=== PATIENT | female | born 1990 | race Caucasian/White ===

== ENCOUNTER 2017-07-08 13:12 | Inpatient (IN) | payer BC, OTHER ==
[2017-07-08 13:55] VITALS: BMI 23.3
--- NOTE | 2017-07-08 16:06 | HP ---
COWS - Scale Resting Pulse: 1= [place] 81-100 Sweatin= Chills/Flushing Restless Observation: 1= Difficult to Sit Still Pupil Size: 1= Pupils >than Normal Bone or Joint Aches: 2= Severe Diffuse Aches Runny Nose/ Eye Tearin= Runny Nose/Eyes GI Upset > 30mins: 1= Stomach Cramp Tremor Observation: 1= Tremor [place], Not Seen Yawning Observation: 1= 1-2x During Session Anxiety or Irritability: 2=Irritable/Anxious Goose Flesh Skin: 0=Smooth Skin COWS Score: 13 Admission [facility] Chief Complaint: Heroin Withdrawal symptoms. Allergies/Adverse Reactions: Allergies Allergy/AdvReac Type Severity Reaction Status Date / Time amoxicillin [From Augmentin] Allergy Hives Verified 07/08/17 15:23 clavulanic acid Allergy Hives Verified 07/08/17 15:23 [From Augmentin] History of Present Illness: Pt presents with heroin withdrawal symptoms. Started using heroin one year ago. Injects up to 2-3 bags daily. Denies ETOH use. Never attempted detox before. Pt denies having seizures or overdosing on heroin. Does state she has blacked out before. Does not remember last time she blacked out. Last use of heroin today, approximately 3-4 hours ago. Has PMH of depression and anxiety. Denies SI/HI. Attempted suicide 10 years ago by taking pills. Exam Limitations: No Limitations - Ebola screening Have you traveled outside of the country in the last 21 days: No Have you had contact with anyone from an Ebola affected area: No Have you been sick,other than usual withdrawal symptoms: No Do you have a fever: No - Review of Systems Constitutional: Night Sweats, Changes in sleep EENT: reports: Tearing, Nose Congestion Respiratory: reports: No Symptoms reported Cardiac: reports: No Symptoms Reported GI: reports: Diarrhea, Nausea, Poor Fluid Intake, Abdominal cramping : reports: No Symptoms Reported Musculoskeletal: reports: Back Pain, Joint Pain, Muscle Pain Neuro: reports: Headache, Tremors Endocrine: reports: No Symptoms Reported Hematology: reports: Easy Bleeding Psychiatric: reports: Orientated x3, Anxious, Depressed Patient History - Patient Medical History Hx Anemia: No Hx Asthma: No Hx Chronic Obstructive Pulmonary Disease (COPD): No Hx Cancer: No Hx Cardiac Disorders: No Hx Congestive Heart Failure: No Hx Hypertension: No Hx Hypercholesterolemia: No Hx Pacemaker: No HX Cerebrovascular Accident: No Hx Seizures: No Hx Dementia: No Hx Diabetes: No Hx Gastrointestinal Disorders: Yes (GERD) Hx Liver Disease: No Hx Genitourinary Disorders: No Hx Sexually Transmitted Disorders: No Hx Renal Disease (ESRD): No Hx Thyroid Disease: No Hx Human Immunodeficiency Virus (HIV): No Hx Hepatitis C: No Hx Depression: Yes Hx Suicide Attempt: Yes (10 YEARS AGO, TRIED TO OVERDOSE ON MULTIPLE PILLS) Hx Bipolar Disorder: No Hx Schizophrenia: No - Patient Surgical History Past Surgical History: No Hx Neurologic Surgery: No Hx Cataract Extraction: No Hx Cardiac Surgery: No Hx Lung Surgery: No Hx Breast Surgery: No Hx Breast Biopsy: No Hx Abdominal Surgery: No Hx Appendectomy: No Hx Cholecystectomy: No Hx Genitourinary Surgery: No Hx Section: No Hx Orthopedic Surgery: No Hx Hysterectomy: No Anesthesia Reaction: No - PPD History Previous Implant?: Yes Documented Results: Negative w/o proof Implanted On Prior R Admission?: No PPD to be Administered?: Yes - Reproductive History Patient : No - Smoking Cessation Smoking history: Current every day smoker Have you smoked in the past 12 months: Yes Aproximately how many cigarettes per day: 10 Hx Chewing Tobacco Use: No Initiated information on smoking cessation: Yes 'Breaking Loose' booklet given: 07/08/17 - Substance & Tx. History Hx Alcohol Use: No Hx Substance Use: Yes Substance Use Type: Heroin Hx Substance Use Treatment: No - Substances Abused Heroin Route: Injection Frequency: Daily Amount used: 2-3 BAGS DAILY ($20-30) Age of first use: 26 Date of Last Use: 07/08/17 Methamphetamine Route: Injection Frequency: Daily Amount used: 1/4 GRAMS Age of first use: 26 Date of Last Use: 07/05/17 Family Disease History - Family Disease History Family History: Unremarkable Admission Physical Exam BHS - Vital Signs Vital Signs: Vital Signs - 24 hr 07/08/17 13:53 Temperature 97.2 F L Pulse Rate 87 Respiratory 18 Rate Blood Pressure 134/97 - Physical General Appearance: Yes: Appropriately Dressed, Thin, Tremorous, Anxious HEENTM: Yes: EOMI, Hearing grossly Normal, Normocephalic, Normal Voice, ROJAS, Pharynx Normal Respiratory: Yes: Chest Non-Tender, Lungs Clear, Normal Breath Sounds, No Respiratory Distress, No Accessory Muscle Use Neck: Yes: No masses,lesions,Nodules, Supple, Trachea in good position Breast: Yes: Breast Exam Deferred Cardiology: Yes: Regular Rhythm, Regular Rate, S1, S2 Abdominal: Yes: Normal Bowel Sounds, Non Tender, Flat, Soft Genitourinary: Yes: Within Normal Limits Back: Yes: Muscle Spasm Musculoskeletal: Yes: Gait Steady, Back pain, Muscle Pain Extremities: Yes: Tremors Neurological: Yes: group work program director II-XII NML intact, Alert, Depressed Affect Integumentary: Yes: Track [place] Lymphatic: Yes: Within Normal Limits - Diagnostic (1) Opioid dependence with withdrawal Current Visit: Yes Status: Acute (2) Depressed affect Current Visit: Yes Status: Acute (3) Anxiety Current Visit: Yes Status: Acute Cleared for Admission [facility] - Detox or Rehab [facility] Level of Care: Medically Managed Detox Regimen/Protocol: Methadone [facility] Breath Alcohol Content Breath Alcohol Content: 0 Urine Pregancy Test - Result Urine Test Results: Negative- NO Line Present Urine Drug Screen - Results Drug Screen Negative: No Urine Drug Screen Results: OPI-Opiates, OXY-Oxycodone Inpatient Rehab Admission - Initial Determination Are CD services needed?: Yes Free of communicable disease: Yes Not in need of hospitalization: Yes - Rehab Admission Criteria Previous failed treatment: No Poor recovery environment: Yes Comorbidities: Yes Lacks judgement: Yes
[2017-07-08] MEDS ORDERED: MAGNESIUM HYDROX 2400MG/30ML ORAL SUSPENSION 30 ML CUP PO PRN (16:16)
[2017-07-08] MEDS ORDERED: P-EPHED 60MG/TRIPROLIDI 2.5MG TABLET PO PRN (16:16)
[2017-07-08] MEDS ORDERED: MAG HYDROX/AL HYDROX/SIMETH 30 ML UNIT-DOSE CUP PO PRN (16:16)
[2017-07-08] MEDS ORDERED: ACETAMINOPHEN 325 MG TABLET (FP) PO PRN (16:16)
[2017-07-08] MEDS ORDERED: MENTHOL/PHENOL 1 EACH UD MM PRN (16:16)
[2017-07-08] MEDS ORDERED: LOPERAMIDE HCL 2 MG CAPSULE PO PRN (16:16)
[2017-07-08] MEDS ORDERED: IBUPROFEN 400 MG TABLET (FP) PO PRN (16:16)
[2017-07-08] MEDS ORDERED: MAGNESIUM CITRATE 300 ML BOTTLE PO PRN (16:16)
[2017-07-08] MEDS ORDERED: guaiFENesin/D-METHORPHAN HB 10 ML UNIT-DOSE CUPS PO PRN (16:16)
[2017-07-08] MEDS ORDERED: diazePAM 5 MG TABLET PO PRN (16:23)
[2017-07-08] MEDS ORDERED: METHADONE HCL 10 MG TABLET (FOR DETOX USE ONLY) PO ONE ×2 (17:30→23:00)
[2017-07-08] MEDS ORDERED: NICOTINE POLACRILEX 2 MG GUM BUC PRN (21:25)
[2017-07-08] MEDS ORDERED: MELATONIN 5 MG TABLETS PO PRN (22:00)
[2017-07-08] MEDS ORDERED: THIAMINE HCL 100 MG TABLET (FP) PO SCH (22:00)
[2017-07-08 23:19] LABS: URINE APPEARANCE CLOUDY; URINE BILIRUBIN NEGATIVE (<2.0 mg/dL); URINE BLOOD NEGATIVE (NEGATIVE); URINE COLOR YELLOW; URINE GLUCOSE (UA) NEGATIVE (NEGATIVE); URINE KETONE NEGATIVE (NEGATIVE); URINE LEUK ESTERASE 1+ (NEGATIVE); URINE NITRITE POSITIVE (NEGATIVE); URINE PROTEIN NEGATIVE (NEGATIVE)
[2017-07-08 23:23] LABS: EPI CELLS RARE /HPF (FEW); URINE BACTERIA RARE /hpf (NONE SEEN); URINE MUCUS RARE
[2017-07-09 09:59] LABS: HEMATOCRIT 38.2 % (32.4-45.2); HEMOGLOBIN 12.9 GM/dL (10.7-15.3); MCH 29.7 pg (25.7-33.7); MCHC 33.8 g/dl (32.0-36.0); MEAN CELL VOLUME 87.8 fl (80-96); MEAN PLT VOLUME 9.7 fl (7.5-11.1); PLATELET COUNT 132 K/MM3 (134-434); RBC 4.35 M/mm3 (3.60-5.2); RDW 13.4 % (11.6-15.6); WHITE BLOOD COUNT 8.4 K/mm3 (4.0-10.0)
[2017-07-09] MEDS ORDERED: METHADONE HCL 10 MG TABLET (FOR DETOX USE ONLY) PO ONE (10:00)
[2017-07-09] MEDS ORDERED: PRENATAL VITAMINS W/ FOLIC ACID TABLET (FP) PO SCH (10:00)
[2017-07-09 10:13] LABS: ANION GAP 2 (8-16); BLOOD UREA NITROGEN 8 mg/dL (7-18); CALCIUM 8.3 mg/dL (8.5-10.1); CHLORIDE 107 mmol/L (98-107); CO2 32 mmol/L (21-32); GLUCOSE,RANDOM 78 mg/dL (74-106); POTASSIUM 4.7 mmol/L (3.5-5.1); SODIUM 141 mmol/L (136-145)
[2017-07-09 10:21] LABS: ALK PHOS 62 U/L (45-117); BILIRUBIN,TOTAL 0.3 mg/dL (0.2-1.0); CREATININE 0.5 mg/dL (0.55-1.02); SGOT/AST 15 U/L (15-37); SGPT/ALT 12 U/L (12-78); TOT PROT 5.8 g/dl (6.4-8.2)
--- NOTE | 2017-07-09 13:12 | CONSULT ---
[facility] Psychiatric Consult - Data Date of interview: 07/09/17 Admission source: [facility] Identifying data: Fire[facility] admission to [facility] for this 27 y/o female seeking detox treatment on for heroin and methamphetamine dependence.Patient is single without children,domiciled and reportedly employed. Substance Abuse History: Discussed with the patient.Ms Mcneill confirmed a one year history of crystal methamphetamine + heroin abuse (intravenous).Details in current [facility] report as follows : Smoking history: Current every day smoker. Have you smoked in the past 12 months: Yes. Aproximately how many cigarettes per day: 10. Hx Chewing Tobacco Use: No. Initiated information on smoking cessation: Yes. 'Breaking Loose' booklet given: 07/08/17. - Substance & Tx. History. Hx Alcohol Use: No. Hx Substance Use: Yes. Substance Use Type: Heroin. Hx Substance Use Treatment: No. - Substances Abused. Heroin. Route: Injection. Frequency: Daily. Amount used: 2-3 BAGS DAILY ($20-30). Age of first use: 26. Date of Last Use: 07/08/17. Methamphetamine. Route: Injection. Frequency: Daily. Amount used: 1/4 GRAMS. Age of first use: 26. Date of Last Use: 07/05/17 Medical History: GERD and a history of spondyloarthropathy. Psychiatric History: Patient admits to " a couple " of [facility] that occurred years ago [facility]She is a hostile and guarded historian." I have no recollection of diagnosis, medications, or dates of my hospitalizations.It happened so long ago.I was in my teens." Ms Mcneill states that she has stopped seeing psychiatrists years ago.No medications taken.In this interview, she denies history of suicide attempts but,according to [facility] report,the patient has revealed, during the intake process, a past suicide attempt (via overdose with pills) 10 years ago. Physical/Sexual Abuse/Trauma History: Not discussed.Patient declined. Additional Comment: Urine Drug Screen Results: OPI-Opiates, OXY-Oxycodone.Noted. Mental Status Exam - Mental Status Exam Alert and Oriented to: Time, Place, Person Cognitive Function: Grossly Intact Patient Appearance: Unkempt, Disheveled (thin) Mood: Angry, Nervous, Withdrawn, Irritable Affect: Mood Congruent, Constricted Patient Behavior: Fatigued, Uncooperative, Guarded Speech Pattern: Clear Voice Loudness: Normal Thought Process: Goal Oriented Thought Disorder: Not Present Hallucinations: Denies Suicidal Ideation: Denies Homicidal Ideation: Denies Insight/Judgement: Poor Sleep: Well Appetite: Fair Muscle strength/Tone: Normal Gait/Station: Normal Psychiatric Findings - Problem List ([place] 1, 2,3) (1) Opioid dependence with withdrawal Current Visit: Yes Status: Acute (2) Substance induced mood disorder Current Visit: Yes Status: Acute - Initial Treatment Plan Initial Treatment Plan: Psychoeducation.Detoxification in effect.Observation.
[2017-07-09 17:55] VITALS: BP 91/58; PULSE 81; TEMP 98.2
--- NOTE | 2017-07-09 19:29 | PN ---
BHS COWS - Scale Resting Pulse: 1= [place] 81-100 Sweatin=Flushed/Facial Moisture Restless Observation: 1= Difficult to Sit Still Pupil Size: 0= Normal to Room Light Bone or Joint Aches: 1= Mild Discomfort Runny Nose/ Eye Tearin= Nasal Congestion GI Upset > 30mins: 1= Stomach Cramp Tremor Observation of Outstretched Hands: 1= Tremor [place], Not Seen Yawning Observation: 1= 1-2x During Session Anxiety or Irritability: 2=Irritable/Anxious Goose Flesh Skin: 0=Smooth Skin COWS Score: 11 BHS Progress Note (SOAP) Subjective: shakes Sweats Objective: 07/09/17 19:27 A & O x 3 Ambulatory Laboratory Last Values WBC 8.4 K/mm3 (4.0-10.0) 07/09/17 08:00 RBC 4.35 M/mm3 (3.60-5.2) 07/09/17 08:00 Hgb 12.9 GM/dL (10.7-15.3) 07/09/17 08:00 Hct 38.2 % (32.4-45.2) 07/09/17 08:00 MCV 87.8 fl (80-96) 07/09/17 08:00 MCH 29.7 pg (25.7-33.7) 07/09/17 08:00 MCHC 33.8 g/dl (32.0-36.0) 07/09/17 08:00 RDW 13.4 % (11.6-15.6) 07/09/17 08:00 Plt Count 132 K/MM3 (134-434) L 07/09/17 08:00 MPV 9.7 fl (7.5-11.1) 07/09/17 08:00 Sodium 141 mmol/L (136-145) 07/09/17 08:00 Potassium 4.7 mmol/L (3.5-5.1) 07/09/17 08:00 Chloride 107 mmol/L (98-107) 07/09/17 08:00 Carbon Dioxide 32 mmol/L (21-32) 07/09/17 08:00 Anion Gap 2 (8-16) L 07/09/17 08:00 BUN 8 mg/dL (7-18) 07/09/17 08:00 Creatinine 0.5 mg/dL (0.55-1.02) L 07/09/17 08:00 Creat Clearance w eGFR > 60 (>60) 07/09/17 08:00 Random Glucose 78 mg/dL (74-106) 07/09/17 08:00 Calcium 8.3 mg/dL (8.5-10.1) L 07/09/17 08:00 Total Bilirubin 0.3 mg/dL (0.2-1.0) 07/09/17 08:00 AST 15 U/L (15-37) 07/09/17 08:00 ALT 12 U/L (12-78) 07/09/17 08:00 Alkaline Phosphatase 62 U/L (45-117) 07/09/17 08:00 Total Protein 5.8 g/dl (6.4-8.2) L 07/09/17 08:00 Albumin 3.0 g/dl (3.4-5.0) L 07/09/17 08:00 Urine Color Yellow 07/08/17 20:35 Urine Appearance Cloudy 07/08/17 20:35 Urine pH 7.0 (5.0-8.0) 07/08/17 20:35 Ur Specific [place] 1.015 (1.001-1.035) 07/08/17 20:35 Urine Protein Negative (NEGATIVE) 07/08/17 20:35 Urine Glucose (UA) Negative (NEGATIVE) 07/08/17 20:35 Urine Ketones Negative (NEGATIVE) 07/08/17 20:35 Urine Blood Negative (NEGATIVE) 07/08/17 20:35 Urine Nitrite Positive (NEGATIVE) 07/08/17 20:35 Urine Bilirubin Negative (<2.0 mg/dL) 07/08/17 20:35 Urine Urobilinogen 2.0 mg/dL (0.2-1.0) H 07/08/17 20:35 Ur Leukocyte Esterase 1+ (NEGATIVE) H 07/08/17 20:35 Urine WBC (Auto) 9 /hpf (3-5) 07/08/17 20:35 Urine RBC (Auto) 1 /hpf (0-3) 07/08/17 20:35 Ur Epithelial Cells Rare /HPF (FEW) 07/08/17 20:35 Urine Bacteria Rare /hpf (NONE SEEN) 07/08/17 20:35 Urine Mucus Rare 07/08/17 20:35 RPR Titer Nonreactive (NONREACTIVE) 07/09/17 08:00 HIV 1&2 Antibody Screen Negative 07/09/17 08:00 HIV P24 Antigen Negative 07/09/17 08:00 labs noted Assessment: 07/09/17 19:27 withdrawal sx Plan: continue detox
--- NOTE | 2017-07-09 19:32 | PN ---
[facility] Progress Note Note: Was informed by BRIAN Deng that pt wanted to sign out against medical advice because her partner signed out from another floor. Pt did not wait for provider eval prior to leaving. Pt was said to be A & O x 3 and had steady gait.
--- NOTE | 2017-07-09 19:33 | DS ---
[facility] Detox Discharge Summary Admission Date: 07/08/17 Discharge Date: 07/09/17 - History Additional Comments: pt left unit prior to provider Eval, Left AMA - Physical Exam Results Vital Signs: Vital Signs Temperature 98.2 F 07/09/17 17:55 Pulse Rate 81 07/09/17 17:55 Respiratory Rate 18 07/09/17 17:55 Blood Pressure 91/58 07/09/17 17:55 O2 Sat by Pulse Oximetry (%) Pertinent Admission Physical Exam Findings: withdrawal sx - Medication Discharge Medications: Ambulatory Orders NK [No Known Home Medication] 07/08/17 - Diagnosis (1) Opioid dependence with withdrawal Status: Acute (2) Anxiety Status: Acute (3) Depressed affect Status: Acute (4) Substance induced mood disorder Status: Acute - AMA Did Patient Leave Against Medical Advice: Yes
--- NOTE | 2017-07-09 22:22 | EKG ---
Test Reason : Blood Pressure : / mmHG Vent. Rate : 088 BPM Atrial Rate : 088 BPM P-R Int : 176 ms QRS Dur : 086 ms QT Int : 348 ms P-R-T Axes : 043 026 033 degrees QTc Int : 421 ms NORMAL SINUS RHYTHM NORMAL ECG NO PREVIOUS ECGS AVAILABLE Confirmed by TRISTAN ARAUJO MD ([id number]) on 07/09/2017 10:21:30 PM Referred By: Confirmed By:TRISTAN ARAUJO MD
[2017-07-10] MEDS ORDERED: METHADONE HCL 5 MG TABLET (FOR DETOX USE ONLY) PO ONE (10:00)
[2017-07-11] MEDS ORDERED: METHADONE HCL 5 MG TABLET (FOR DETOX USE ONLY) PO ONE (10:00)
[2017-07-12] MEDS ORDERED: METHADONE HCL 10 MG TABLET (FOR DETOX USE ONLY) PO ONE (10:00)
[2017-07-13] MEDS ORDERED: METHADONE HCL 5 MG TABLET (FOR DETOX USE ONLY) PO ONE (06:00)
== END 2017-07-09 18:53 | disposition left against medical advice (07) | DRG 894 ==
LOC: YASAS 13:12 → Y6N 16:34
PROVIDERS: ADMIT Internal Medicine; ATTEND Internal Medicine
PROC: HZ2ZZZZ Detoxification Services for Substance Abuse Treatment (ICD-10-PCS; principal; 2017-07-08)
DX: F11.23 Opioid dependence with withdrawal (principal); F17.210 Nicotine dependence, cigarettes, uncomplicated; F19.24 Other psychoactive substance dependence with psychoactive substance-induced mood disorder; F41.9 Anxiety disorder, unspecified; R45.89 Other symptoms and signs involving emotional state; K21.9 Gastro-esophageal reflux disease without esophagitis; Z91.5 Personal history of self-harm
CPT/HCPCS: 36415; 80053; 81003; 81015; 85027; 86593; 87389; 93005; 93010

== ENCOUNTER 2017-08-11 20:39 | Inpatient (IN) | payer BC, OTHER ==
[2017-08-11 23:02] VITALS: BMI 22.8
--- NOTE | 2017-08-12 00:44 | HP ---
COWS - Scale Resting Pulse: 1= [place] 81-100 Sweatin=Flushed/Facial Moisture Restless Observation: 0= Sits Still Pupil Size: 0= Normal to Room Light Bone or Joint Aches: 4=Acute Joint/Muscle Pain Runny Nose/ Eye Tearin= None GI Upset > 30mins: 1= Stomach Cramp Tremor Observation: 2= Slight Tremor Visible Yawning Observation: 1= 1-2x During Session Anxiety or Irritability: 4=Extreme Anxiety Goose Flesh Skin: 0=Smooth Skin COWS Score: 15 Admission ROS [facility] - [facility] Chief Complaint: Heroin withdrawal symptoms Allergies/Adverse Reactions: Allergies Allergy/AdvReac Type Severity Reaction Status Date / Time amoxicillin [From Augmentin] Allergy Hives Verified 07/08/17 15:23 clavulanic acid Allergy Hives Verified 07/08/17 15:23 [From Augmentin] History of Present Illness: 27 years old female with a year history of heroin dependence is seeking admission to detox. Patient has been in previous detox and insignificant period of sobriety. She has history of GERD, depression and anxiety. Reports suicide attempt in 2009 and denies suicidal ideation at this time. Exam Limitations: No Limitations - Ebola screening Have you traveled outside of the country in the last 21 days: No (N) Have you had contact with anyone from an Ebola affected area: No Have you been sick,other than usual withdrawal symptoms: No Do you have a fever: No - Review of Systems Constitutional: Chills, Loss of Appetite, Malaise, Night Sweats, Changes in sleep EENT: reports: No Symptoms Reported Respiratory: reports: No Symptoms reported Cardiac: reports: No Symptoms Reported GI: reports: Nausea, Poor Appetite, Poor Fluid Intake, Abdominal cramping : reports: No Symptoms Reported Musculoskeletal: reports: No Symptoms Reported, Back Pain, Muscle Pain Integumentary: reports: Dryness, Flushing Neuro: reports: Headache, Tingling, Tremors Endocrine: reports: No Symptoms Reported Hematology: reports: No Symptoms Reported Psychiatric: reports: Orientated x3, Anxious, Depressed Other Systems: Reviewed and Negative Patient History - Patient Medical History Hx Anemia: No Hx Asthma: No Hx Chronic Obstructive Pulmonary Disease (COPD): No Hx Cancer: No Hx Cardiac Disorders: No Hx Congestive Heart Failure: No Hx Hypertension: No Hx Hypercholesterolemia: No Hx Pacemaker: No HX Cerebrovascular Accident: No Hx Seizures: No Hx Dementia: No Hx Diabetes: No Hx Gastrointestinal Disorders: Yes (GERD- not on medication) Hx Liver Disease: No Hx Genitourinary Disorders: No Hx Sexually Transmitted Disorders: No Hx Renal Disease (ESRD): No Hx Thyroid Disease: No Hx Human Immunodeficiency Virus (HIV): No Hx Hepatitis C: No Hx Depression: Yes (Not on medication) Hx Suicide Attempt: Yes (2009, Denies suicidal ideation at this time) Hx Bipolar Disorder: No Hx Schizophrenia: No - Patient Surgical History Past Surgical History: No Hx Neurologic Surgery: No Hx Cataract Extraction: No Hx Cardiac Surgery: No Hx Lung Surgery: No Hx Breast Surgery: No Hx Breast Biopsy: No Hx Abdominal Surgery: No Hx Appendectomy: No Hx Cholecystectomy: No Hx Genitourinary Surgery: No Hx Section: No Hx Orthopedic Surgery: No Hx Hysterectomy: No Anesthesia Reaction: No - PPD History Previous Implant?: Yes (PPD BUT NOT READ PER PATIENT) Implanted On Prior [facility] Admission?: Yes Date: 07/10/17 PPD to be Administered?: Yes - Reproductive History Patient is a Female of Child Bearing Age (11 -55 yrs old): Yes Last Menstrual Period: 07/29/17 Patient : No - Smoking Cessation Smoking history: Current every day smoker Have you smoked in the past 12 months: Yes Aproximately how many cigarettes per day: 10 Hx Chewing Tobacco Use: No Initiated information on smoking cessation: Yes 'Breaking Loose' booklet given: 08/12/17 - Substance & Tx. History Hx Alcohol Use: No Hx Substance Use: Yes Substance Use Type: Heroin, Marijuana Hx Substance Use Treatment: Yes ([facility]) - Substances Abused Heroin Route: Injection Frequency: Daily Amount used: 1 bundle or 10 bags Age of first use: 26 Date of Last Use: 08/12/17 Marijuana/Hashish Route: Smoking Frequency: Daily Amount used: 5 hits Age of first use: 15 Date of Last Use: 08/11/17 Family Disease History - Family Disease History Family History: Denies Admission Physical Exam S - Vital Signs Vital Signs: Vital Signs - 24 hr 08/11/17 22:59 Temperature 97.7 F Pulse Rate 90 Respiratory 20 Rate Blood Pressure 134/89 - Physical General Appearance: Yes: Moderate Distress HEENTM: Yes: EOMI, Normal ENT Inspection, Normocephalic, Normal Voice, ROJAS Respiratory: Yes: Lungs Clear, Normal Breath Sounds, No Respiratory Distress Neck: Yes: Supple Breast: Yes: Breast Exam Deferred Cardiology: Yes: Regular Rhythm, Regular Rate, Tachycardia Abdominal: Yes: Normal Bowel Sounds, Soft Genitourinary: Yes: Within Normal Limits Back: Yes: Normal Inspection Musculoskeletal: Yes: Back pain, Muscle Pain, Muscle weakness Extremities: Yes: Tremors Neurological: Yes: Alert, Normal Mood/Affect Integumentary: Yes: Warm Lymphatic: Yes: Within Normal Limits - Diagnostic (1) Cannabis dependence, uncomplicated Current Visit: Yes Status: Chronic (2) Depression Current Visit: Yes Status: Chronic Qualifiers: Depression Type: unspecified Qualified Code(s): F32.9 - Major depressive disorder, single episode, unspecified (3) GERD (gastroesophageal reflux disease) Current Visit: Yes Status: Chronic (4) Anxiety Current Visit: Yes Status: Chronic (5) Opioid dependence with withdrawal Current Visit: Yes Status: Chronic Cleared for Admission [facility] - Detox or Rehab [facility] Level of Care: Medically Managed Detox Regimen/Protocol: Methadone [facility] Breath Alcohol Content Breath Alcohol Content: 0 Urine Pregancy Test - Result Urine Test Results: Negative- NO Line Present Urine Drug Screen - Results Drug Screen Negative: No Urine Drug Screen Results: THC-Marijuana, OPI-Opiates, MTD-Methadone
[2017-08-12] MEDS ORDERED: NICOTINE POLACRILEX 2 MG GUM BC PRN (00:59)
[2017-08-12] MEDS ORDERED: P-EPHED 60MG/TRIPROLIDI 2.5MG TABLET PO PRN (00:59)
[2017-08-12] MEDS ORDERED: IBUPROFEN 400 MG TABLET (FP) PO PRN (00:59)
[2017-08-12] MEDS ORDERED: MENTHOL/PHENOL 1 EACH UD MM PRN (00:59)
[2017-08-12] MEDS ORDERED: guaiFENesin/D-METHORPHAN HB 10 ML UNIT-DOSE CUPS PO PRN (00:59)
[2017-08-12] MEDS ORDERED: MAG HYDROX/AL HYDROX/SIMETH 30 ML UNIT-DOSE CUP PO PRN (00:59)
[2017-08-12] MEDS ORDERED: MAGNESIUM CITRATE 300 ML BOTTLE PO PRN (00:59)
[2017-08-12] MEDS ORDERED: ACETAMINOPHEN 325 MG TABLET (FP) PO PRN (00:59)
[2017-08-12] MEDS ORDERED: MAGNESIUM HYDROX 2400MG/30ML ORAL SUSPENSION 30 ML CUP PO PRN (00:59)
[2017-08-12] MEDS ORDERED: LOPERAMIDE HCL 2 MG CAPSULE PO PRN (00:59)
[2017-08-12] MEDS ORDERED: METHADONE HCL 10 MG TABLET (FOR DETOX USE ONLY) PO ONE ×3 (01:01→23:00)
[2017-08-12] MEDS: diazePAM 5 MG TABLET PO PRN ×2 (02:39→10:12)
[2017-08-12] MEDS ORDERED: PRENATAL VITAMINS W/ FOLIC ACID TABLET (FP) PO SCH (10:00)
[2017-08-12] MEDS ORDERED: NICOTINE 14 MG/24 HOURS TOPICAL PATCH TD SCH (10:00)
[2017-08-12 10:04] LABS: HEMATOCRIT 41.7 % (32.4-45.2); MCH 29.5 pg (25.7-33.7); MCHC 33.6 g/dl (32.0-36.0); MEAN CELL VOLUME 87.9 fl (80-96); MEAN PLT VOLUME 10.2 fl (7.5-11.1); PLATELET COUNT 130 K/MM3 (134-434); RBC 4.74 M/mm3 (3.60-5.2); RDW 13.7 % (11.6-15.6); WHITE BLOOD COUNT 10.7 K/mm3 (4.0-10.0)
--- NOTE | 2017-08-12 10:11 | PN ---
BHS COWS - Scale Resting Pulse: 0= [place] 80 or Below Sweatin= Chills/Flushing Restless Observation: 3= Extraneous Movement Pupil Size: 1= Pupils >than Normal Bone or Joint Aches: 2= Severe Diffuse Aches Runny Nose/ Eye Tearin= Runny Nose/Eyes GI Upset > 30mins: 3= Vomiting/Diarrhea Tremor Observation of Outstretched Hands: 2= Slight Tremor Visible Yawning Observation: 1= 1-2x During Session Anxiety or Irritability: 2=Irritable/Anxious Goose Flesh Skin: 0=Smooth Skin COWS Score: 17 S Progress Note (SOAP) Subjective: ALERT,IRRITABLE,ANXIOUS,INTERRUPTED SLEEP,PAIN IN BODY AND BACK,TREMOR Objective: 08/12/17 10:09 Vital Signs Temperature 98.1 F 08/12/17 09:55 Pulse Rate 77 08/12/17 09:55 Respiratory Rate 16 08/12/17 09:55 Blood Pressure 112/67 08/12/17 09:55 O2 Sat by Pulse Oximetry (%) EKG NSR WITH SINUS ARRHYTHMIA QT 382/420 Laboratory Last Values WBC 10.7 K/mm3 (4.0-10.0) H 08/12/17 07:50 RBC 4.74 M/mm3 (3.60-5.2) 08/12/17 07:50 Hgb 14.0 GM/dL (10.7-15.3) 08/12/17 07:50 Hct 41.7 % (32.4-45.2) 08/12/17 07:50 MCV 87.9 fl (80-96) 08/12/17 07:50 MCH 29.5 pg (25.7-33.7) 08/12/17 07:50 MCHC 33.6 g/dl (32.0-36.0) 08/12/17 07:50 RDW 13.7 % (11.6-15.6) 08/12/17 07:50 Plt Count 130 K/MM3 (134-434) L 08/12/17 07:50 MPV 10.2 fl (7.5-11.1) 08/12/17 07:50 OTHER LABS PENDING Assessment: 08/12/17 10:10 WITHDRAWAL SYMPTOM Plan: CONTINUE DETOX,DEHYDRATED,ENCOURAGE ORAL FLUID,
[2017-08-12 10:25] LABS: CHLORIDE 109 mmol/L (98-107); POTASSIUM 4.3 mmol/L (3.5-5.1); SODIUM 143 mmol/L (136-145)
[2017-08-12 10:43] LABS: ALBUMIN 3.6 g/dl (3.4-5.0); ALK PHOS 84 U/L (45-117); ANION GAP 8 (8-16); BILIRUBIN,TOTAL 0.4 mg/dL (0.2-1.0); BLOOD UREA NITROGEN 19 mg/dL (7-18); CO2 26 mmol/L (21-32); CREATININE 0.6 mg/dL (0.55-1.02); GLUCOSE,RANDOM 82 mg/dL (74-106); SGOT/AST 19 U/L (15-37); SGPT/ALT 22 U/L (12-78); TOT PROT 6.9 g/dl (6.4-8.2)
--- NOTE | 2017-08-12 11:26 | EKG ---
Test Reason : Blood Pressure : / mmHG Vent. Rate : 073 BPM Atrial Rate : 073 BPM P-R Int : 196 ms QRS Dur : 082 ms QT Int : 382 ms P-R-T Axes : 038 013 013 degrees QTc Int : 420 ms NORMAL SINUS RHYTHM WITH SINUS ARRHYTHMIA SUSPECTED INCORRECT LEAD PLACEMENT ANTERIOR PRECORDIAL LEADS REPEAT EKG IF CLINICALLY INDICATED Confirmed by ANDREAS BAE MD ([id number]) on 08/12/2017 11:26:25 AM Referred By: Confirmed By:ANDREAS BAE MD
--- NOTE | 2017-08-12 16:16 | CONSULT ---
[facility] Psychiatric Consult - Data Date of interview: 08/12/17 Admission source: [facility] Identifying data: This is one of the multiple admissions to [facility] for this 27 yo H single female ,domiciled,unemployed. Substance Abuse History: Reports using heroin since 26 yo,2-3 bags daily, MetAMPHETAMINE SINCE 26 YO 1/4 GRAMS DAILY INJECTION. Medical History: GERD,H/O Spondilosis. Psychiatric History: Reports being dx with Bipolar disorder or Mood disorder in her teens.No recollections of medications.reports a few psychiatric admissions long time ago.Patient is not on psychotropic medications for a long time and is not willing to restart at present. Physical/Sexual Abuse/Trauma History: denies Mental Status Exam - Mental Status Exam Alert and Oriented to: Time, Place, Person Cognitive Function: Grossly Intact Patient Appearance: Unkempt Mood: Euthymic Affect: Mood Congruent Patient Behavior: Passive, Sedated, Cooperative Speech Pattern: Clear Voice Loudness: Normal Thought Process: Goal Oriented Thought Disorder: Not Present Hallucinations: Denies Suicidal Ideation: Denies Homicidal Ideation: Denies Insight/Judgement: Fair Sleep: Fair Appetite: Fair Muscle strength/Tone: Normal Gait/Station: Normal Psychiatric Findings - Problem List ([place] 1, 2,3) (1) Cannabis dependence, uncomplicated Current Visit: Yes Status: Chronic (2) GERD (gastroesophageal reflux disease) Current Visit: Yes Status: Chronic (3) Opioid dependence with withdrawal Current Visit: Yes Status: Chronic (4) Substance induced mood disorder Current Visit: Yes Status: Chronic - Initial Treatment Plan Initial Treatment Plan: Will monitor progress.Consider mood stabilizers if needed.
[2017-08-12 18:55] VITALS: BP 116/58; PULSE 89; TEMP 98.1
[2017-08-12] MEDS ORDERED: THIAMINE HCL 100 MG TABLET (FP) PO SCH (22:00)
[2017-08-12] MEDS ORDERED: MELATONIN 5 MG TABLETS PO PRN (22:00)
--- NOTE | 2017-08-12 22:52 | PN ---
S Progress Note Note: Spoke with patient who states is leaving AMA. Alert and oriented. Discussed treatment and medication adjustment but refused to stay. Discussed potential for overdose risks and verbalized an understanding. Lab Results WBC 10.7 K/mm3 (4.0-10.0) H 08/12/17 07:50 RBC 4.74 M/mm3 (3.60-5.2) 08/12/17 07:50 Hgb 14.0 GM/dL (10.7-15.3) 08/12/17 07:50 Hct 41.7 % (32.4-45.2) 08/12/17 07:50 MCV 87.9 fl (80-96) 08/12/17 07:50 MCHC 33.6 g/dl (32.0-36.0) 08/12/17 07:50 RDW 13.7 % (11.6-15.6) 08/12/17 07:50 Plt Count 130 K/MM3 (134-434) L 08/12/17 07:50 Sodium 143 mmol/L (136-145) 08/12/17 07:50 Potassium 4.3 mmol/L (3.5-5.1) 08/12/17 07:50 Chloride 109 mmol/L (98-107) H 08/12/17 07:50 Carbon Dioxide 26 mmol/L (21-32) 08/12/17 07:50 Anion Gap 8 (8-16) 08/12/17 07:50 BUN 19 mg/dL (7-18) H 08/12/17 07:50 Creatinine 0.6 mg/dL (0.55-1.02) 08/12/17 07:50 Random Glucose 82 mg/dL (74-106) 08/12/17 07:50 Calcium 9.0 mg/dL (8.5-10.1) 08/12/17 07:50 Vital Signs - 24 hr 08/11/17 08/12/17 08/12/17 22:59 02:05 03:21 Temperature 97.7 F 98.1 F 98.1 F Pulse Rate 90 76 76 Respiratory 20 18 18 Rate Blood Pressure 134/89 135/83 135/83 08/12/17 08/12/17 08/12/17 03:30 06:00 09:55 Temperature 98.1 F 98.1 F Pulse Rate 65 77 Respiratory 16 18 16 Rate Blood Pressure 114/65 112/67 08/12/17 08/12/17 14:12 18:55 Temperature 98.2 F 98.1 F Pulse Rate 83 89 Respiratory 16 18 Rate Blood Pressure 120/63 116/58 Patient refused any referrals and left AMA.
--- NOTE | 2017-08-12 22:56 | DS ---
[facility] Detox Discharge Summary Admission Date: 08/12/17 Discharge Date: 08/12/17 - History Pertinent Past History: See HPI - Physical Exam Results Vital Signs: Vital Signs Temperature 98.1 F 08/12/17 18:55 Pulse Rate 89 08/12/17 18:55 Respiratory Rate 18 08/12/17 18:55 Blood Pressure 116/58 08/12/17 18:55 O2 Sat by Pulse Oximetry (%) - Medication Discharge Medications: Ambulatory Orders NK [No Known Home Medication] 07/08/17 - Diagnosis (1) Opioid dependence with withdrawal Status: Acute (2) Anxiety Status: Acute (3) Cannabis dependence, uncomplicated Status: Chronic (4) GERD (gastroesophageal reflux disease) Status: Chronic Qualifiers: Esophagitis presence: esophagitis presence not specified Qualified Code(s) : K21.9 - Gastro-esophageal reflux disease without esophagitis - AMA Did Patient Leave Against Medical Advice: Yes (Left knowing risks of relpase and overdose risks. )
[2017-08-13] MEDS ORDERED: METHADONE HCL 10 MG TABLET (FOR DETOX USE ONLY) PO ONE (10:00)
[2017-08-14] MEDS ORDERED: METHADONE HCL 5 MG TABLET (FOR DETOX USE ONLY) PO ONE (10:00)
[2017-08-15] MEDS ORDERED: METHADONE HCL 5 MG TABLET (FOR DETOX USE ONLY) PO ONE (10:00)
[2017-08-16] MEDS ORDERED: METHADONE HCL 10 MG TABLET (FOR DETOX USE ONLY) PO ONE (10:00)
[2017-08-17] MEDS ORDERED: METHADONE HCL 5 MG TABLET (FOR DETOX USE ONLY) PO ONE (06:00)
== END 2017-08-12 19:57 | disposition left against medical advice (07) | DRG 894 ==
LOC: YASAS 20:39 → Y6N 08-12 00:08
PROVIDERS: ADMIT Surgery; ATTEND Surgery
PROC: HZ2ZZZZ Detoxification Services for Substance Abuse Treatment (ICD-10-PCS; principal; 2017-08-12)
DX: F11.23 Opioid dependence with withdrawal (principal); F12.20 Cannabis dependence, uncomplicated; F41.9 Anxiety disorder, unspecified; F19.24 Other psychoactive substance dependence with psychoactive substance-induced mood disorder; K21.9 Gastro-esophageal reflux disease without esophagitis; Z91.5 Personal history of self-harm
CPT/HCPCS: 36415; 80053; 85027; 86593; 93005; 93010